=== PATIENT | male | born 1980 | race American Indian/Alaskan Native ===

== ENCOUNTER 2017-09-25 12:14 | Emergency (ER) | payer MEDICAID, OTHER ==
[2017-09-25 12:31] VITALS: BP 141/88; PULSE 80; RESP 16; TEMP 98.1; O2SAT 98
[2017-09-25] MEDS ORDERED: (Novolin R) Insulin Human Regular 100 units/ml vial SC ONE (13:56)
--- NOTE | 2017-09-25 13:58 | C.PDOC ---
History Of Present Illness 37 y/o male presents to the ER for evaluation of mild dizziness and elevated glucose levels. Patient states that he ran out of his diabetes medications and he did not understand how to get the medications refilled. Patient denies having CP and SOB. Time Seen by Provider: 09/25/17 13:43 Chief Complaint (Nursing): High Blood Sugar History Per: Patient History/Exam Limitations: no limitations Onset/Duration Of Symptoms: Days Current Symptoms Are (Timing): Still Present Severity: Moderate Past Medical History Reviewed: Historical Data, Nursing Documentation, Vital Signs Vital Signs: Last Vital Signs Temp 98.1 F 09/25/17 12:29 Pulse 80 09/25/17 12:29 Resp 16 09/25/17 12:29 BP 141/88 09/25/17 12:29 Pulse Ox 98 09/25/17 17:58 - Medical History PMH: HTN Surgical History: No Surg Hx Family History: States: No Known Family Hx - Social History Hx Alcohol Use: Yes Hx Substance Use: No - Immunization History Hx Tetanus Toxoid Vaccination: No Hx Influenza Vaccination: No Hx Pneumococcal Vaccination: No Review Of Systems Except As Marked, All Systems Reviewed And Found Negative. Constitutional: Negative for: Fever, Chills Cardiovascular: Negative for: Chest Pain Respiratory: Negative for: Shortness of Breath Neurological: Positive for: Dizziness Physical Exam - Physical Exam Appears: Non-toxic, No Acute Distress, Other (tall, heavy black male) Skin: Normal Color, Warm, Dry Head: Atraumatic, Normacephalic Eye(s): bilateral: Normal Inspection Nose: Normal Oral Mucosa: Moist Neck: Supple Chest: Symmetrical Cardiovascular: Rhythm Regular Respiratory: Normal Breath Sounds, No Rales, No Rhonchi, No Wheezing Extremity: Normal ROM Neurological/Psych: Oriented x3, Normal Speech ED Course And Treatment O2 Sat by Pulse Oximetry: 98 (RA) Pulse Ox Interpretation: Normal Progress Note: Insulin SC Medical Decision Making Medical Decision Making: ran out of meds and test strips and lancets trulicity > 1 week ago Disposition Doctor Will See Patient In The: Office Counseled Patient/Family Regarding: Studies Performed, Diagnosis - Disposition Referrals: Bernardo Cook MD [Staff Provider] - Disposition: HOME/ ROUTINE Disposition Time: 13:57 Condition: GOOD Additional Instructions: metformin 1500 mg twice a day WITH BREAKFAST AND DINNER Glimepride 4 mg in the morning with breakfast Trulicity, SQ once weekly (pick a weekday and stick with it) Check your finger-stick BEFORE breakfast and BEFORE dinner Write in your finger-stick log book Bring the booklet to your next visit in about [address] Cook Follow a diabetic diet- 4-5 small meals/day Continue to loose weight. MAKE SURE YOU REFILL YOUR DIABETES MEDICATIONS MORE THAN ONE WEEK BEFORE THEY ARE GOING TO RUN OUT. YOU MAY PRESENT TO THE ED FAST TRACK FOR MEDICATION REFILLS AT ANY TIME. Prescriptions: Dulaglutide [Trulicity] 0.75 mg SC QWK #4 ml Glimepiride [Amaryl] 4 mg PO DAILY #30 tablet Glucose Meter [Blood Glucose Monitoring System] 1 dev XX PRN PRN #1 dev PRN Reason: diabetes Lancets/Blood Glucose Strips [[id number] 1 each MC BID #60 combo..pkg MetFORMIN [glucoPHAGE] 1,500 mg PO BID #60 tab Instructions: Diabetes Diet , Diabetic Meal Planning Forms: [employer] (Irish) - Clinical Impression Clinical Impression: Diabetes - Scribe Statement The provider has reviewed the documentation as recorded by the [place] Mahmood Provider Attestation: All medical record entries made by the Scribe were at my direction and personally dictated by me. I have reviewed the chart and agree that the record accurately reflects my personal performance of the history, physical exam, medical decision making, and the department course for this patient. I have also personally directed, reviewed, and agree with the discharge instructions and disposition.
[2017-09-25] MEDS ORDERED: (Novolin R) Insulin Human Regular 100 units/ml vial ONE (14:20)
== END 2017-09-25 14:22 | disposition home or self-care (01) ==
LOC: C.ER 12:14
DX: E11.9 Type 2 diabetes mellitus without complications (principal); I10 Essential (primary) hypertension